=== PATIENT | male | born 1965 | race Caucasian/White ===

== ENCOUNTER 2020-12-03 20:21 | Emergency (ER) | payer OTHER, SELFPAY ==
--- NOTE | 2020-12-03 20:25 | ED_ITS ---
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 Today while at home started having some chest pain which also he claims that he does get chest pain ever most every day for last 1 month after having chest pain he was started shouting calling his girlfriend and then he had a seizure which lasted about 5 minutes by the time EMS reached patient was just moving her slight arm alert no postictal findings very anxious. No incontinence no eyes of Prolene patient denied any use of alcohol or substance complaint: seizure Onset (ago): minute(s) Description of Episode: loss of consciousness and tonic-clonic movement Duration of episode: 5 -: minutes(s) Witnessed: Yes - by Bystander Trauma: No Seizure History: Yes Place: Home Possible Precipitating Event: lack of sleep Associated symptoms: chest pain Related Data Allergies Allergy/AdvReac Type Severity Reaction Status Date / Time hydromorphone [From Dilaudid] Allergy Difficulty Verified 12/03/20 20:47 Swallowing Penicillins Allergy Difficulty Verified 12/03/20 20:47 Swallowing Review of Systems Review of Systems: Constitutional : No Weight loss, No Fever, No Chills ENT/Mouth : No sore throat, No Rhinorrhea Eyes: No Eye Pain, No Swelling Cardiovascular : ++ Chest Pain, no palpitations Respiratory : No Cough, No Sputum, no shortness of breath Gastrointestinal : no Nausea, No Vomiting, No Diarrhea, No abdominal Pain, no black stools Genitourinary : No Dysuria, No Urinary Frequency Musculoskeletal : No joint pain, No Myalgias, No Joint Swelling Skin : No Skin Lesions, No rash Neuro : No Weakness, No Numbness, No Dizziness, No Headache Psych : ++Anxiety/Panic, ++ Depression Heme/Lymph: No Bruising, No Lymphadenopathy Endocrine : No Polyuria, No Polydipsia All other systems reviewed and are negative PMFSH Past Medical History Medical History COPD (chronic obstructive pulmonary disease) Emphysema lung HIV disease Pulmonary embolism Seizures Surgical History H/O wrist surgery History of lung surgery Previous back surgery Social History Social History Alcohol intake: never Smoking Status: Current every day smoker Smoked in Last 30 Days: Yes Use of substances other than those prescribed or required for medical reasons: No Advance Directives: No Advance Directives Information Provided: No Physical Exam Vital Signs: Vital Signs: Last Vital Signs Temp 98.7 F 12/03/20 23:41 Pulse 75 12/03/20 23:41 Resp 20 12/03/20 23:41 BP 104/63 12/03/20 23:41 Pulse Ox 99 12/03/20 23:41 Body Mass Index 18.8 Const: General: comfortable, alert, awake and anxious Nutritional Appearance: thin Orientation/consciousness: patient oriented x3 HENMT: Head: Yes normocephalic and Yes atraumatic Ears: hearing grossly normal bilaterally General nose exam: Normal external nose present Mouth: Normal oral and palatal mucosa present, tongue normal and oropharynx normal Teeth and gingiva: dentition normal Eyes: General: appearance normal, both eyes and all related structures Conjunctivae: conjunctivae normal Sclerae: sclerae normal Pupils: Equal, r ound and reactive pupils present Neck: Neck: Yes normal visual inspection, Yes full ROM, Yes no lymphadenopathy and Yes no meningeal signs Chest: Chest palpation & inspection: normal palpation of entire chest wall and abnormal inspection of the chest Resp: Effort & Inspection: normal respiratory effort Auscultation: clear to auscultation bilaterally, no crackles, no rales and no rhonchi Cardio: Palpation: normal PMI Rate: regular rate Rhythm: regular rhythm Heart sounds: S1 normal heart sound present and S2 normal heart sound present GI: Inspection: Yes normal to inspection Palpation (GI): Soft to palpation and nontender Auscultation: normal bowel sounds Back/Spine/Pelvis: Thoracic/Lumbar Spine: thoracic and lumbar spine normal to inspection Skin: General skin exam: no rashes or lesions noted Neuro: General: patient oriented x3, gait normal, tone normal, moves all extremities, Normal light touch and pain sensation, no meningeal signs, no focal motor deficits and CN's II-XI intact bilaterally Cranial nerves: Yes Equal, r ound and reactive pupils present Extrem: General: Yes normal to inspection, Yes full ROM and Yes no calf tenderness Psych: Appearance: grossly normal Mental Status: mental status grossly normal Speech and movement: Normal speech and movement present Affect: Anxious affect present Attitude: cooperative Thought process: Normal thought process present Thought content: Normal thought content present Insight: Good insight present (Psych) Judgement: Good judgement present (Psych) Course Reevaluation(s) Reevaluation #1: Patient is sleeping at this time no seizures activities patient EKG showed deep T inversion in anterior leads seems to be old but no old EKG available initial troponin was 4.9 for the chest pain which is going on for a month which is not significant. Will repeat EKG and troponin plan to discharge patient home to be followed with neurologist Time: 23:34 MDM - Seizure MDM Narrative Medical decision making narrative: Patient has atypical pseudoseizures been sleeping in the ER in the ER he started shaking his right hand which was stopped by holding it. CT scan of the head is negative for any acute pathology. Patient is very rude with the nurses refused to draw the 2nd troponin although 2nd EKG was without any acute change. Patient denied any chest pain. Will d ischarge patient home at this time advised to follow-up with neurologist Differential Diagnosis Differential diagnosis: Likely generalized seizure Lab Data Attestation: I reviewed the patient's lab results. Result diagrams: 12/03/20 21:15 12/03/20 21:15 Labs: Lab Results 12/03/20 12/03/20 12/03/20 Range/Units 21:15 21:15 21:15 WBC 1.8 L (4.8-10.8) X10*3/uL RBC 4.45 L (4.60-5.80) X10*6/uL Hgb 11.3 L (14.0-18.0) g/dl Hct 35.8 L (42-52) % MCV 80.4 (80-98) fL MCH 25.4 L (27.0-33.0) pg MCHC 31.6 (31.0-36.0) g/dl RDW 14.8 (11.0-16.0) % Plt Count 123 L (160-400) X10*3/uL MPV 10.3 (9.4-12.4) fL Immature Gran % (Auto) Cancelled Neut % (Auto) Cancelled Lymph % (Auto) Cancelled [place] % (Auto) Cancelled Eos % (Auto) Cancelled Baso % (Auto) Cancelled Lymph # (Auto) Cancelled [place] # (Auto) Cancelled Eos # (Auto) Cancelled Baso # (Auto) Cancelled Abs Immat Gran (auto) Cancelled Absolute Neuts (auto) Cancelled Absolute Nucleated RBC 0.000 (0.0-0.012) X10*3/uL Nucleated RBC % (auto) 0.0 (0.0-0.2) /100WBC Neutrophils % (Manual) 53 (45-73) % Band Neutrophils % 0 L (3-5) % Lymphocytes % (Manual) 39 (20-40) % Monocytes % (Manual) 8 (2-11) % Abs Neuts (Manual) 1.0 L (2.2-7.9) X10*3/uL Lymphocytes # (Manual) 0.7 (0.6-4.8) X10*3/uL Monocytes # (Manual) 0.1 (0.0-1.2) X10*3/uL Platelet Estimate SLIGHTLY DECREASED (NORMAL) Plt Morphology Comment NORMAL RBC Morphology NORMAL PT 12.5 (10.8-13.0) SEC INR 1.1 (0.9-1.1) Sodium 134 L (135-145) mmol/L Potassium 4.0 (3.3-5.1) mmol/l Chloride 103 (96-108) mmol/L Carbon Dioxide 24 (22-29) mmol/L Anion Gap 11 L (12-20) BUN 17 H (9-16) mg/dL Creatinine 1.04 (0.5-1.4) mg/dL Estim Creat Clear Calc 64.8 Estimated GFR > 60 Random Glucose 73 (60-115) mg/dL Calcium 8.5 (8.4-10.2) mg/dL Total Bilirubin 0.4 (0.0-1.0) mg/dL Direct Bilirubin 0.2 (0.0-0.5) mg/dL AST 22 (5-37) U/L ALT 16 (0-40) U/L Alkaline Phosphatase 97 (39-117) U/L Troponin I High Sens (<3.5-35.0) ng/L Total Protein 7.1 (6.5-8.0) g/dL Albumin 3.4 L (3.5-5.0) g/dL Valproic Acid (50.0-100.0) mcg/mL 12/03/20 12/03/20 Range/Units 21:15 21:15 WBC (4.8-10.8) X10*3/uL RBC (4.60-5.80) X10*6/uL Hgb (14.0-18.0) g/dl Hct (42-52) % MCV (80-98) fL MCH (27.0-33.0) pg MCHC (31.0-36.0) g/dl RDW (11.0-16.0) % Plt Count (160-400) X10*3/uL MPV (9.4-12.4) fL Immature Gran % (Auto) Neut % (Auto) Lymph % (Auto) [place] % (Auto) Eos % (Auto) Baso % (Auto) Lymph # (Auto) [place] # (Auto) Eos # (Auto) Baso # (Auto) Abs Immat Gran (auto) Absolute Neuts (auto) Absolute Nucleated RBC (0.0-0.012) X10*3/uL Nucleated RBC % (auto) (0.0-0.2) /100WBC Neutrophils % (Manual) (45-73) % Band Neutrophils % (3-5) % Lymphocytes % (Manual) (20-40) % Monocytes % (Manual) (2-11) % Abs Neuts (Manual) (2.2-7.9) X10*3/uL Lymphocytes # (Manual) (0.6-4.8) X10*3/uL Monocytes # (Manual) (0.0-1.2) X10*3/uL Platelet Estimate (NORMAL) Plt Morphology Comment RBC Morphology PT (10.8-13.0) SEC INR (0.9-1.1) Sodium (135-145) mmol/L Potassium (3.3-5.1) mmol/l Chloride (96-108) mmol/L Carbon Dioxide (22-29) mmol/L Anion Gap (12-20) BUN (9-16) mg/dL Creatinine (0.5-1.4) mg/dL Estim Creat Clear Calc Estimated GFR Random Glucose (60-115) mg/dL Calcium (8.4-10.2) mg/dL Total Bilirubin (0.0-1.0) mg/dL Direct Bilirubin (0.0-0.5) mg/dL AST (5-37) U/L ALT (0-40) U/L Alkaline Phosphatase (39-117) U/L Troponin I High Sens 4.9 (<3.5-35.0) ng/L Total Protein (6.5-8.0) g/dL Albumin (3.5-5.0) g/dL Valproic Acid < 2.0 L (50.0-100.0) mcg/mL ECG Data Attestation: I personally reviewed and interpreted this ECG as follows: Interpretation: Normal sinus rhythm heart rate 72, right-sided axis T inversion in anterior leads V1 V2 V3 and lead 2 and lead [address] elevation no acute ischemia Repeat EKG at 23 33. Normal sinus rhythm ventricular rate 71 beats per minute right axis T inversion in anterior leads similar to an old EKG no ST elevation Discharge Plan Discharge Clinical Impression: Pseudoseizure, Anxiety Patient Disposition: Home, Self-Care Instructions: Recurrent Seizures in Adults (ED), Anxiety (ED) Additional Instructions: Continue medication and follow with neurologist/PCP Referrals: Juan Rivas MD [Physician] - 2 weeks
[2020-12-03 20:39] VITALS: BP 109/71; PULSE 76; RESP 18; TEMP 36.7; O2SAT 99; BMI 18.8
--- NOTE | 2020-12-03 20:48 | ECG_ITS ---
Test Reason : CHEST PAIN Blood Pressure : / mmHG Vent. Rate : 072 BPM Atrial Rate : 072 BPM P-R Int : 190 ms QRS Dur : 100 ms QT Int : 406 ms P-R-T Axes : 067 106 -40 degrees QTc Int : 444 ms Normal sinus rhythm Rightward axis Cannot rule out Inferior infarct , age undetermined ST & T wave abnormality, consider anterior ischemia Abnormal ECG No previous ECGs available Referred By: Len Bolivar Electronically Signed By:ALYSSA OG MD
--- NOTE | 2020-12-03 20:48 | XR_ITS ---
EXAMINATION: XR CHEST CLINICAL INFORMATION: Chest pain. COMPARISON: None TECHNIQUE: Frontal view of the chest was obtained. FINDINGS: Heart size is normal. There is evidence of COPD with bullous formation, especially at the apices. There has been partial pneumonectomy with chain suture line seen in the right [id number] lobe and possibly left upper lobe as well. There is no evidence of CHF. No consolidations or pleural effusions are seen. There is a large pulmonary vein seen at the left lung base medially which could be secondary to anomalous pulmonary venous return (i.e., Scimitar syndrome). Anatomy could also be distorted because of previous surgery and this could be artifactual. CT would be helpful for further evaluation, however, I suspect that this patient has probably had many chest CTs in the past given the bilateral lung resection/surgery. XR/XR chest 1V IMPRESSION: 1. No acute intrathoracic disease. 2. Underlying COPD with evidence of bilateral upper lobe lung surgery. 3. Prominent pulmonary vein at the left base medially which could represent anomalous pulmonary venous return. This would be best evaluated with contrast-enhanced CT.
[2020-12-03] MEDS: LORazepam 2 MG/ML VIAL 1 MG IVPUSH (21:05)
--- NOTE | 2020-12-03 21:17 | PC.NURSE ---
patient a&ox3, monitoring coordinator applied, nsr 70s, ekg performed, cxr performed, seizure precautions intact, pt medicated per order, will continue to monitor.
[2020-12-03] MEDS: Aspirin Enteric Coated 81 MG TABLET.DR 162 MG PO (21:26)
[2020-12-03 21:27] LABS: Hemoglobin 11.3 g/dl (14.0-18.0); PLT CLUMP 1
--- NOTE | 2020-12-03 21:27 | PC.NURSE ---
pt medicated per order
[2020-12-03 21:29] LABS: Hematocrit 35.8 % (42-52); Mean Corpuscular HGB Conc 31.6 g/dl (31.0-36.0); Mean Corpuscular Hemoglobin 25.4 pg (27.0-33.0); Mean Corpuscular Volume 80.4 fL (80-98); Mean Platelet Volume 10.3 fL (9.4-12.4); Platelet Count 123 X10*3/uL (160-400); Red Blood Count 4.45 X10*6/uL (4.60-5.80); Red Cell Distribution Width 14.8 % (11.0-16.0)
[2020-12-03 21:32] LABS: INTERNATIONAL NORM RATIO 1.1 (0.9-1.1); Prothrombin Time 12.5 SEC (10.8-13.0)
[2020-12-03 21:48] LABS: Alanine Aminotransferase 16 U/L (0-40); Albumin Level 3.4 g/dL (3.5-5.0); Alkaline Phosphatase 97 U/L (39-117); Anion Gap 11 (12-20); Aspartate Amino Transferase 22 U/L (5-37); Bilirubin Direct 0.2 mg/dL (0.0-0.5); Bilirubin Total 0.4 mg/dL (0.0-1.0); Blood Urea Nitrogen 17 mg/dL (9-16); Calcium 8.5 mg/dL (8.4-10.2); Carbon Dioxide 24 mmol/L (22-29); Chloride 103 mmol/L (96-108); Creatinine Clr Calc Pharmacy 64.8; Estimated Glomerular Filt Rate > 60; Glucose Random 73 mg/dL (60-115); Sodium 134 mmol/L (135-145); Total Protein 7.1 g/dL (6.5-8.0)
[2020-12-03 21:51] LABS: Troponin-I High Sensitivity 4.9 ng/L (<3.5-35.0)
[2020-12-03 21:55] LABS: White Blood Count 1.8 X10*3/uL (4.8-10.8)
[2020-12-03 22:00] LABS: Lymphocytes Absolute Manual 0.7 X10*3/uL (0.6-4.8); Lymphocytes Percent Manual 39 % (20-40); Monocytes Absolute Manual 0.1 X10*3/uL (0.0-1.2); Monocytes Percent Manual 8 % (2-11); Neutrophils Percent Manual 53 % (45-73)
--- NOTE | 2020-12-03 22:00 | CT_ITS ---
EXAMINATION: CT HEAD WITHOUT CONTRAST CLINICAL INFORMATION: Seizure on elaq eloquenceisu COMPARISON: None TECHNIQUE: Contiguous axial imaging was performed from the skull base to vertex without intravenous administration of contrast. This CT examination was performed using dose optimization techniques as appropriate, variously including the following: *Automated exposure control *Adjustment of mA and/or kV according to patient size (this includes techniques or standardized protocols for targeted exams where dose is matched to indication/reason for exam; i.e. extremities or head) *Use of iterative reconstruction technique DLP: 829 mGy-cm FINDINGS: There is no evidence of acute intracranial hemorrhage or territorial infarction. No abnormal mass effect or midline shift is seen. Ventricles are within normal limits. Some probable scattered areas of white matter ischemic change. The basilar cisterns are patent. The posterior fossa risk grossly within normal limits. No extra-axial collection. No evidence for fracture on the bone windows. The visualized sinuses appear clear. CT/CT head/brain wo con IMPRESSION: Negative acute noncontrast CT of the brain. Some probable scattered areas of white matter ischemic change. No midline shift. No mass effect. No hemorrhage. Given history consider MRI to fully evaluate.
[2020-12-03 22:03] LABS: Platelet Estimate SLIGHTLY DECREASED (NORMAL); Platelet Morphology Comment NORMAL; RBC Morphology NORMAL
[2020-12-03 22:04] LABS: Band Neutrophils Percent 0 % (3-5)
[2020-12-03 22:09] LABS: Valproate < 2.0 mcg/mL (50.0-100.0)
--- NOTE | 2020-12-03 23:18 | ECG_ITS ---
Test Reason : SEIZURE Blood Pressure : / mmHG Vent. Rate : 071 BPM Atrial Rate : 071 BPM P-R Int : 202 ms QRS Dur : 102 ms QT Int : 400 ms P-R-T Axes : 073 109 -24 degrees QTc Int : 434 ms Normal sinus rhythm Possible Left atrial enlargement Anterior T wave inversion c/w either anterior ischemia or RV strain Possible Inferior infarct (cited on or before 03-DEC-2020) Abnormal ECG When compared with ECG of 03-DEC-2020 21:03, No significant change was found Referred By: Len Bolivar Electronically Signed By:ALYSSA OG MD
[2020-12-03 23:41] VITALS: BP 104/63; PULSE 75; RESP 20; TEMP 37.1; O2SAT 99
--- NOTE | 2020-12-03 23:46 | PC.NURSE ---
GERMAIN MCALLISTER AND MD HARRISON AWARE OF PATIENT REFUSAL OF REPEATED TROPONIN .
--- NOTE | 2020-12-03 23:51 | PC.NURSE ---
PATIENT SWEARING AT STAFF MEMBERS REFUSING TO HAVE ADDITIONAL LABS DRAWN. MD AT BEDSIDE, PLAN OF CARE WILL BE FOR DISCHARGE HOME. PATIENT IS ALERT WITH NO DISTRESS NOTED.
== END 2020-12-03 23:56 | disposition home or self-care (01) ==
PROVIDERS: Emergency Provider Internal Medicine
DX: F44.5 Conversion disorder with seizures or convulsions (principal); F41.9 Anxiety disorder, unspecified; J44.9 Chronic obstructive pulmonary disease, unspecified; B20 Human immunodeficiency virus [HIV] disease; F17.200 Nicotine dependence, unspecified, uncomplicated; Z86.711 Personal history of pulmonary embolism; Z79.01 Long term (current) use of anticoagulants; Z79.899 Other long term (current) drug therapy
CPT/HCPCS: 36415; 70450; 71045; 80048; 80076; 80164; 84484; 85007; 85027; 85060; 85610; 93005; 96374; 99284; J2060

== ENCOUNTER 2021-02-28 22:14 | Emergency (ER) | payer OTHER, SELFPAY ==
--- NOTE | ~2021-02-28 | CT_ITS ---
EXAMINATION: CT ANGIOGRAM OF THE CHEST WITH AND WITHOUT CONTRAST (CT PULMONARY ANGIOGRAM FOR PE) CLINICAL INFORMATION: Reason for Exam Chest pain, shortness of breath, known PE COMPARISON: None TECHNIQUE: Prior to contrast administration, noncontrast localization images were obtained. Subsequently, multidetector volumetric imaging was performed from the thoracic inlet to below the diaphragms following the administration of 65 mL Omnipaque 350 intravenous contrast. No contrast reaction reported Sagittal, coronal, and MIP oblique sagittal reformatted images were obtained on the CT workstation, uploaded to PACS, and reviewed. This CT examination was performed using dose optimization techniques as appropriate, variously including the following: *Automated exposure control *Adjustment of mA and/or kV according to patient size (this includes techniques or standardized protocols for targeted exams where dose is matched to indication/reason for exam; i.e. extremities or head) *Use of iterative reconstruction technique Total exam dose-length product 206 mGy-cm FINDINGS: QUALITY OF STUDY/CONTRAST BOLUS: Satisfactory. PULMONARY ARTERIES: Extensive bilateral thromboembolic burden with complete occlusion of a medial segmental pulmonary artery to the middle lobe as seen on series 7, image 253, and partial occlusion of the right upper lobe pulmonary artery containing wall adherent thrombus extending into the segmental branches. On the left, there is occlusive thrombus within segmental pulmonary arteries supplying the apical posterior segments, and nonocclusive thrombus within lateral and posterior basal segmental pulmonary arteries. The main pulmonary artery is dilated to 33 mm compatible with pulmonary hypertension. THORACIC AORTA: No aneurysm or dissection. LUNG: Severe bullous emphysema with areas of pleural-parenchymal scarring within the anterior segment of the upper lobe and lateral left upper lobe. No suspicious pulmonary nodules or masses. PLEURA: No pleural effusion or pneumothorax. MEDIASTINUM: Increased RV LV ratio greater than 1 indicative of pulmonary hypertension. No pericardial effusion. No hilar or mediastinal lymphadenopathy. No evidence of septal bowing or right heart strain. CHEST WALL/AXILLA: No axillary or internal mammary lymphadenopathy. OSSEOUS STRUCTURES: No acute or suspicious osseous abnormality. UPPER ABDOMEN: Unremarkable. No reflux of contrast into the hepatic veins to suggest elevated right heart pressures. CT/CT angio chest PE protocol IMPRESSION: * Extensive bilateral pulmonary emboli most of which appearing chronic, wall adherent and eccentric in appearance. Thrombus within a pulmonary artery supplying the medial segment of the middle lobe is completely occlusive. As such, acute on chronic pulmonary embolism is also considered. * Significant pulmonary hypertension without evidence of right heart decompensation at this time. VTE: positive This critical result was discussed with Flaquita Rosen MD at 03/01/2021 1252AM and it was ascertained that the content and urgency of the report was understood at the time of direct communication.
[2021-02-28 22:17] VITALS: BP 118/86; PULSE 96; RESP 18; TEMP 37; O2SAT 100; BMI 25.9
--- NOTE | 2021-02-28 22:29 | ECG_ITS ---
Test Reason : CHEST PAIN Blood Pressure : / mmHG Vent. Rate : 092 BPM Atrial Rate : 092 BPM P-R Int : 172 ms QRS Dur : 112 ms QT Int : 374 ms P-R-T Axes : 082 113 048 degrees QTc Int : 462 ms Normal sinus rhythm Biatrial enlargement Right axis deviation Pulmonary disease pattern Right ventricular hypertrophy with repolarization abnormality Abnormal ECG When compared with ECG of 03-DEC-2020 23:33, T wave inversion no longer evident in Inferior leads Referred By: Generic ED Physician Electronically Signed By:BAYRON GLYNN
[2021-02-28 22:47] LABS: Basophils Percent Auto 0.8 % (0-2); Eosinophils Percent Auto 1.1 % (0-4); Hematocrit 38.7 % (42-52); Hemoglobin 12.1 g/dl (14.0-18.0); Lymphocytes Absolute Auto 0.5 X10*3/uL (1.2-4.9); Lymphocytes Percent Auto 20.6 % (20-40); MANUAL DIFF FLAG SCAN; Mean Corpuscular HGB Conc 31.3 g/dl (31.0-36.0); Mean Corpuscular Hemoglobin 25.2 pg (27.0-33.0); Mean Corpuscular Volume 80.6 fL (80-98); Mean Platelet Volume 9.9 fL (9.4-12.4); Monocytes Absolute Auto 0.3 X10*3/uL (0.1-1.2); Monocytes Percent Auto 9.9 % (2-11); Neutrophils Absolute Auto 1.8 X10*3/uL (2.0-8.3); Neutrophils Percent Auto 67.6 % (45-73); Platelet Count 134 X10*3/uL (160-400); Red Cell Distribution Width 16.4 % (11.0-16.0); SCAN SMEAR FLAG 1; White Blood Count 2.6 X10*3/uL (4.8-10.8)
--- NOTE | 2021-02-28 23:00 | PC.NURSE ---
Pt requesting pain management. pt orientated to process of ED and needing provider to put in orders. Pt verbalized d/c teaching.
[2021-02-28 23:07] LABS: SLIDE REVIEW VERIFIED
[2021-02-28 23:10] LABS: Alanine Aminotransferase 20 U/L (0-40); Albumin Level 3.7 g/dL (3.5-5.0); Alkaline Phosphatase 96 U/L (39-117); Anion Gap 14 (12-20); Aspartate Amino Transferase 26 U/L (5-37); Bilirubin Direct 0.2 mg/dL (0.0-0.5); Bilirubin Total 0.4 mg/dL (0.0-1.0); Blood Urea Nitrogen 19 mg/dL (9-16); Calcium 8.7 mg/dL (8.4-10.2); Carbon Dioxide 23 mmol/L (22-29); Chloride 103 mmol/L (96-108); Creatinine Clr Calc Pharmacy 66.4; Estimated Glomerular Filt Rate > 60; Glucose Random 131 mg/dL (60-115); Potassium 3.9 mmol/L (3.3-5.1); Sodium 136 mmol/L (135-145); Total Protein 7.8 g/dL (6.5-8.0)
[2021-02-28 23:16] LABS: Troponin-I High Sensitivity 6.3 ng/L (<3.5-35.0)
--- NOTE | 2021-02-28 23:43 | PC.NURSE ---
Pt refusing CT at this time. Pt educated that it is important to be fully evaluated prior to leaving hosptial. per patient I havent jerardoking seen a doctor only nurses, this place is a fucking shit hole. I should have went to a real hospital. I want stuff for pain. MD aware. Continuing to monitor at this time.
[2021-02-28 23:46] VITALS: BP 104/64; PULSE 62; RESP 18; O2SAT 96
--- NOTE | 2021-02-28 23:52 | PC.NURSE ---
pt continues to refuse ct until I see a real doctor >.
--- NOTE | 2021-02-28 23:56 | PC.NURSE ---
provider at bedside.
--- NOTE | 2021-03-01 00:04 | ED.GENADULT ---
HPI - General Adult General Chief complaint: General Medical Stated complaint: CP S/P FALL Time Seen by Provider: 02/28/21 23:04 Source: patient Mode of arrival: EMS History of Present Illness HPI narrative: This is a 55-year-old male with significant past medical history of PE currently on Eliquis (patient states that on re-evaluation of PE it has increased in size), HIV and presents via EMS today after he reports that he fell down 5 stairs while he was caring a garbage bag in each hand. He states that he did not hit anything with the exception of bilateral knees upon landing. He denies any subsequent pain to either knee and states that this evening he went to have dinner and watch wrestling and then developed right-sided chest pain that radiates into his back and worsens with deep inspiration as well as movement. He denies any associated dizziness or nausea. Related Data Home Medications Medication Instructions Recorded Confirmed apixaban [Eliquis] 1 tab PO BID 03/01/21 03/01/21 divalproex 4 cap PO BID 03/01/21 03/01/21 fluticasone propion-salmeterol 1 puff PO BID 03/01/21 03/01/21 [Wixela Inhub] ipratropium-albuterol 1 vial INHALATION QID 03/01/21 03/01/21 levetiracetam 1 tab PO BID 03/01/21 03/01/21 multivitamin 1 tab PO DAILY 03/01/21 03/01/21 pantoprazole 1 tab PO DAILY 03/01/21 03/01/21 sulfamethoxazole-trimethoprim 1 tab PO DAILY 03/01/21 03/01/21 Allergies Allergy/AdvReac Type Severity Reaction Status Date / Time hydromorphone [From Dilaudid] Allergy Difficulty Verified 12/03/20 20:47 Swallowing Penicillins Allergy Difficulty Verified 12/03/20 20:47 Swallowing Review of Systems Review of Systems: Pertinent positives and negatives as stated in HPI 10 point review of systems is otherwise negative. [facility] Past Medical History Source: nursing notes reviewed Medical History COPD (chronic obstructive pulmonary disease) Emphysema lung HIV disease Pulmonary embolism Seizures Surgical History H/O wrist surgery History of lung surgery Previous back surgery Social History Social History Alcohol intake: current Alcohol intake frequency: 3 or more drinks per day Smoking Status: Current every day smoker Smoked in Last 30 Days: Yes Use of substances other than those prescribed or required for medical reasons: Refusing to respond Advance Directives: No Advance Directives Information Provided: Yes Physical Exam Vital Signs: Vital Signs: Last Vital Signs Temp 98.6 F 02/28/21 22:17 Pulse 62 02/28/21 23:46 Resp 18 02/28/21 23:46 BP 104/64 02/28/21 23:46 Pulse Ox 96 02/28/21 23:46 Body Mass Index 25.9 VITAL SIGNS: Reviewed. GENERAL: Well developed, well nourished, in no acute distress. HEAD: Normocephalic/atraumatic, EYES: PERRLA, EOMI intact without pain EARS: Ext canals without abnormality NOSE: Nares patent bilateral OROPHARYNX: no oral lesions noted, posterior pharynx clear NECK: Supple, no adenopathy LUNGS: Normal breath sounds. No adventitious sounds or accessory muscle use. SpO2<96> CHEST WALL: minimal ttp over RIGHT anterior chest without crepitus CARDIOVASCULAR: Regular rate and rhythm without noted murmurs ABDOMEN: Soft, non-tender, non-distended with bowel sounds. MUSCULOSKELETAL: No tenderness, deformities, or effusions noted on gross inspection. EXTREMITIES: No cyanosis, clubbing or edema. SKIN: Inspection of the skin reveals no rashes NEUROLOGIC: Alert and oriented x 4. Strength and sensation to light touch were grossly intact x 4. Course Course Course Narrative: 55-year-old male with history and clinical presentation concerning for possible change in clot load within the pulmonary system given patient's symptoms. Although there are no acute EKG changes and high sensitivity troponin is 6.3 which is not a significant elevation or change when compared to prior of 4.9 on 12/03/2020. Reevaluation(s) Reevaluation #1: CTA CHEST IMPRESSION: * Extensive bilateral pulmonary emboli most of which appearing chronic, wall adherent and eccentric in appearance. Thrombus within a pulmonary artery supplying the medial segment of the middle lobe is completely occlusive. As such, acute on chronic pulmonary embolism is also considered. * Significant pulmonary hypertension without evidence of right heart decompensation at this time. VTE: positive Time: 00:52 Reevaluation #2: I discussed this case with vascular, Dr. Lowry, who recommends transfer to [facility] in light of prior care provided there as well as potentially new findings of PE with 100% occlusion without evidence of right heart strain. Time: 01:50 Reevaluation #3: Call out to [facility] Time: 01:55 Additional Reevaluation(s): 0235: I discussed the case with ICU fellow, Dr. Colby, who will discuss that further with her attending and return my call. 0310: I again spoke with Dr. Colby who informs me that they are not accepting transfer at this time as patient does not meet criteria for acute intervention or criteria for tPA. At this time I you am being informed that [facility] is on diversion for otherwise stable patients. 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 0525: I discussed the case with Dr. Hector who is agreeable for admission and recommends placing on heparin with a half dose of the initial bolus. Medical Decision Making Lab Data Result diagrams: 02/28/21 22:42 02/28/21 22:42 Labs: Lab Results 02/28/21 02/28/21 02/28/21 Range/Units 22:42 22:42 22:42 WBC 2.6 L (4.8-10.8) X10*3/uL RBC 4.80 (4.60-5.80) X10*6/uL Hgb 12.1 L (14.0-18.0) g/dl Hct 38.7 L (42-52) % MCV 80.6 (80-98) fL MCH 25.2 L (27.0-33.0) pg MCHC 31.3 (31.0-36.0) g/dl RDW 16.4 H (11.0-16.0) % Plt Count 134 L (160-400) X10*3/uL MPV 9.9 (9.4-12.4) fL Immature Gran % (Auto) 0.0 (0.0-0.4) % Neut % (Auto) 67.6 (45-73) % Lymph % (Auto) 20.6 (20-40) % [place] % (Auto) 9.9 (2-11) % Eos % (Auto) 1.1 (0-4) % Baso % (Auto) 0.8 (0-2) % Lymph # (Auto) 0.5 L (1.2-4.9) X10*3/uL [place] # (Auto) 0.3 (0.1-1.2) X10*3/uL Eos # (Auto) 0.0 (0.0-0.4) X10*3/uL Baso # (Auto) 0.0 (0.0-0.2) X10*3/uL Abs Immat Gran (auto) 0.00 (0.00-0.03) X10*3/uL Absolute Neuts (auto) 1.8 L (2.0-8.3) X10*3/uL Absolute Nucleated RBC 0.000 (0.0-0.012) X10*3/uL Nucleated RBC % (auto) 0.0 (0.0-0.2) /100WBC Smear Tech's Comments VERIFIED Hold Blue Top SEE NOTE Sodium 136 (135-145) mmol/L Potassium 3.9 (3.3-5.1) mmol/L Chloride 103 (96-108) mmol/L Carbon Dioxide 23 (22-29) mmol/L Anion Gap 14 (12-20) BUN 19 H (9-16) mg/dL Creatinine 1.12 (0.5-1.4) mg/dL Estim Creat Clear Calc 66.4 Estimated GFR > 60 Random Glucose 131 H D (60-115) mg/dL Calcium 8.7 (8.4-10.2) mg/dL Total Bilirubin 0.4 (0.0-1.0) mg/dL Direct Bilirubin 0.2 (0.0-0.5) mg/dL AST 26 (5-37) U/L ALT 20 (0-40) U/L Alkaline Phosphatase 96 (39-117) U/L Troponin I High Sens (<3.5-35.0) ng/L Total Protein 7.8 (6.5-8.0) g/dL Albumin 3.7 (3.5-5.0) g/dL COVID-19 ([facility]) (Negative) COVID-19 Clin Com 02/28/21 03/01/21 Range/Units 22:42 02:41 WBC (4.8-10.8) X10*3/uL RBC (4.60-5.80) X10*6/uL Hgb (14.0-18.0) g/dl Hct (42-52) % MCV (80-98) fL MCH (27.0-33.0) pg MCHC (31.0-36.0) g/dl RDW (11.0-16.0) % Plt Count (160-400) X10*3/uL MPV (9.4-12.4) fL Immature Gran % (Auto) (0.0-0.4) % Neut % (Auto) (45-73) % Lymph % (Auto) (20-40) % [place] % (Auto) (2-11) % Eos % (Auto) (0-4) % Baso % (Auto) (0-2) % Lymph # (Auto) (1.2-4.9) X10*3/uL [place] # (Auto) (0.1-1.2) X10*3/uL Eos # (Auto) (0.0-0.4) X10*3/uL Baso # (Auto) (0.0-0.2) X10*3/uL Abs Immat Gran (auto) (0.00-0.03) X10*3/uL Absolute Neuts (auto) (2.0-8.3) X10*3/uL Absolute Nucleated RBC (0.0-0.012) X10*3/uL Nucleated RBC % (auto) (0.0-0.2) /100WBC Smear Tech's Comments Hold Blue Top Sodium (135-145) mmol/L Potassium (3.3-5.1) mmol/L Chloride (96-108) mmol/L Carbon Dioxide (22-29) mmol/L Anion Gap (12-20) BUN (9-16) mg/dL Creatinine (0.5-1.4) mg/dL Estim Creat Clear Calc Estimated GFR Random Glucose (60-115) mg/dL Calcium (8.4-10.2) mg/dL Total Bilirubin (0.0-1.0) mg/dL Direct Bilirubin (0.0-0.5) mg/dL AST (5-37) U/L ALT (0-40) U/L Alkaline Phosphatase (39-117) U/L Troponin I High Sens 6.3 (<3.5-35.0) ng/L Total Protein (6.5-8.0) g/dL Albumin (3.5-5.0) g/dL COVID-19 ([facility]) Negative (Negative) COVID-19 Clin Com See Note Discharge Plan Discharge Clinical Impression: Acute pulmonary embolism Qualifiers: Pulmonary embolism type: other Acute cor pulmonale presence: without acute cor pulmonale Qualified Code(s): I26.99 - Other pulmonary embolism without acute cor pulmonale Patient Disposition: Admitted As Inpatient
[2021-03-01] MEDS: Morphine Sulfate 2 MG/ML CARTRIDGE 1 MG IVPUSH ×2 (00:14→04:30)
[2021-03-01] MEDS: iohexoL 350 MG/ML 100 ML INFUS..BTL 65 ML IV (00:37)
[2021-03-01 03:06] LABS: COVID-19 Test Negative (Negative); IDNOW Serial# 9DD0AD1C
--- NOTE | 2021-03-01 03:14 | PC.NURSE ---
[facility] refused transfer. plan at this time is to reach out to other facilities. continuing to monitor.
--- NOTE | 2021-03-01 04:31 | PC.NURSE ---
pt medicated for pain to chest rating 10/10.
[2021-03-01 06:01] LABS: Hematocrit 35.3 % (42-52); Hemoglobin 11.3 g/dl (14.0-18.0); Mean Corpuscular Hemoglobin 25.5 pg (27.0-33.0); Mean Corpuscular Volume 79.5 fL (80-98); Mean Platelet Volume 10.2 fL (9.4-12.4); Platelet Count 121 X10*3/uL (160-400); Red Blood Count 4.44 X10*6/uL (4.60-5.80); Red Cell Distribution Width 16.6 % (11.0-16.0); White Blood Count 2.6 X10*3/uL (4.8-10.8)
[2021-03-01 06:02] LABS: Prothrombin Time 11.8 SEC (10.8-13.0)
[2021-03-01 07:03] VITALS: BP 105/74; PULSE 83; RESP 17; O2SAT 95
--- NOTE | 2021-03-01 07:06 | PC.NURSE ---
REPORT TAKEN FROM JAVIER KAPOOR MD AT BEDSIDE DURING REPORT. INFORMED THIS RN TO NOT START HEPARIN, MEDICAL RECORD SPECIALIST ALSO REVIEWED SCAN AND POSSIBLY NO PE. PATIENT TO BE SENT FOR FURTHER IMAGING WELL ADD D DIMER TO LAB WORK. PATIENT INFORMED OF THIS BY RN, PATIENT APPEARED IRRITATED ABOUT PLAN. PATIENT SLEEPING UPON ASSESSMENT, WOKE EASILY TO VOICE. VITALS UPDATED, STABLE.
[2021-03-01 08:32] LABS: D Dimer 1884 NG/ML
== END 2021-03-01 08:42 | disposition home or self-care (01) ==
PROVIDERS: Student in an Organized Health Care Education/Training Program; Emergency Provider Emergency Medicine Emergency Medical Services; PCP Internal Medicine
DX: I26.99 Other pulmonary embolism without acute cor pulmonale (principal); R07.9 Chest pain, unspecified; Z20.822 Contact with and (suspected) exposure to COVID-19; F17.200 Nicotine dependence, unspecified, uncomplicated; Z21 Asymptomatic human immunodeficiency virus [HIV] infection status; Z86.711 Personal history of pulmonary embolism; Z79.01 Long term (current) use of anticoagulants
CPT/HCPCS: 36415; 71275; 80053; 80076; 82248; 84484; 85025; 85027; 85379; 85610; 85730; 87635; 93005; 96365; 96375; 96376; 99284; 99285; J2270; Q9967

== ENCOUNTER 2021-05-27 16:28 | Emergency (ER) | payer OTHER, SELFPAY ==
--- NOTE | ~2021-05-27 | XR_ITS ---
EXAMINATION: XR WRIST, RIGHT CLINICAL INFORMATION: Right wrist injury COMPARISON: None TECHNIQUE: Four views of the right wrist. FINDINGS: There is plate and screw fixation hardware at the distal radius. Hardware is intact. No acute fracture or dislocation. The carpal rows are well aligned. Joint spaces are maintained. The soft tissues are unremarkable. XR/XR wrist RT min 3V IMPRESSION: No acute abnormality of the right wrist. Intact distal radial hardware.
[2021-05-27 17:09] VITALS: BP 140/75; PULSE 75; RESP 18; TEMP 36.8; O2SAT 98; BMI 16.7
--- NOTE | 2021-05-27 17:44 | ED.EXTPRO ---
HPI - Extremity Problem General Chief complaint: Extremity Injury, Upper Stated complaint: hand inj - fall Time Seen by Provider: 05/27/21 17:22 Source: patient and family Mode of arrival: ambulatory Limitations: no limitations History of Present Illness HPI Narrative: 55-year-old male presenting to the ED with complaints of right wrist pain after he tripped and fell last night at home reports it was a mechanical fall. Denies head injury or loss of consciousness. Denies any symptoms prior to the fall. Reports he only had wrist pain after the fall and no other symptoms after the fall. Reports he had surgery and has screws into his right wrist and wants to make sure everything is still intact. Denies being on any blood thinners. Denies any other injuries complaints or concerns at this time. MD Complaint: extremity pain Onset (ago): day(s) ( Since last night) Pain Consistency: constant Location: right and upper extremity Quality: aching and constant Radiation: none Relieving factors: rest Exacerbating factors: range of motion and palpation Associated symptoms: denies other symptoms Related Data Home Medications Medication Instructions Recorded Confirmed apixaban [Eliquis] 1 tab PO BID 03/01/21 03/01/21 divalproex 4 cap PO BID 03/01/21 03/01/21 fluticasone propion-salmeterol 1 puff PO BID 03/01/21 03/01/21 [Wixela Inhub] ipratropium-albuterol 1 vial INHALATION QID 03/01/21 03/01/21 levetiracetam 1 tab PO BID 03/01/21 03/01/21 multivitamin 1 tab PO DAILY 03/01/21 03/01/21 pantoprazole 1 tab PO DAILY 03/01/21 03/01/21 sulfamethoxazole-trimethoprim 1 tab PO DAILY 03/01/21 03/01/21 Allergies Allergy/AdvReac Type Severity Reaction Status Date / Time adhesive tape Allergy Rash Verified 05/27/21 17:09 hydromorphone [From Dilaudid] Allergy Difficulty Verified 05/27/21 17:09 Swallowing Penicillins Allergy Difficulty Verified 05/27/21 17:09 Swallowing Review of Systems Review of Systems: Constitutional : No changes in activity, No lethargy, No recent prior head injury, No agitation, No increased fussiness ENT/Mouth : No Ear Pain, No Nasal discharge/drainage Eyes: No Eye Pain, No Swelling, No Redness, No Foreign Body, No Vision Changes Cardiovascular : No Chest Pain, No SOB Respiratory : No Cough Gastrointestinal : No Nausea, No Vomiting, No abdominal Pain Genitourinary : No Dysuria, No Urinary Frequency, No Urinary Incontinence, No Urgency, No Flank Pain Musculoskeletal : + joint pain, No neck stiffness, No back pain/injury Skin : No lacerations Neuro : No unsteady gait, No Paresthesias, No Loss of Consciousness, No altered mental status, No Headache Yes all other systems are reviewed and are negative [facility] Past Medical History Attestation statement: The following information was validated with the patient. Medical History Anxiety COPD (chronic obstructive pulmonary disease) Emphysema lung HIV disease Pulmonary embolism Seizures Surgical History H/O wrist surgery History of lung surgery Previous back surgery Social History Social History Alcohol intake: current Alcohol intake frequency: 3 or more drinks per day Advance Directives: Yes Advance Directives Information Provided: No Advance Directives on File: No Physical Exam Vital Signs: Vital Signs: Last Vital Signs Temp 98.2 F 05/27/21 17:09 Pulse 75 05/27/21 17:09 Resp 18 05/27/21 17:09 BP 140/75 H 05/27/21 17:09 Pulse Ox 98 05/27/21 17:09 Body Mass Index 16.7 vital signs have been reviewed as normal and appeared to be correct. Blood pressure normal. Heart rate normal. Respiration rate normal. Temperature normal. Oxygen saturation normal. Appearance: Alert. Oriented X3. No acute distress. Head: Normal external exam. Normocephalic. Atraumatic. Eyes: PERRLA. EOMI. Conjunctiva and sclera normal. Eyelids normal. ENT: Pharynx normal. Uvula midline. Moist mucous membranes. Neck: Normal inspection. Neck supple. FROM. CVS: Normal heart rate and rhythm. Respiratory: No respiratory distress. Painless inspiration. Back:Full range of motion noted. Skin: Skin warm and dry. Normal skin color. Normal skin turgor. No rashes/lesions/lacerations noted. Extremities: patient with tenderness to palpation to right distal aspect of the wrist at the radial aspect no obvious deformities patient has full range of motion of the elbow/wrist and hand/finger joints. No obvious laxity is noted. No signs of infection. Otherwise all other Extremities exhibit normal range of motion and nontender. Neuro: Oriented X 3. No motor deficit. No sensory deficit. Reflexes normal. Normal steady gait. No focal neuro deficits noted. Vascular: + radial pulses/+ 2 distal pedal pulses/+2 dorsalis pedis b/l. Normal cap refill. No cyanosis noted to upper extremity nails and lower extremity toes nails. Course Course Course Narrative: 55-year-old male presenting to the ED after mechanical fall with injury to right wrist. No LOC not on any blood thinners and no head injury. Reports this was a mechanical fall did not have any symptoms prior to the fall and only a complaining of right wrist pain after the fall no other symptoms. On exam patient has full range of motion no obvious deformities or signs of infection. X-ray negative for any acute processes and his hardware is intact. Will DC home with a wrist splint and symptomatic treatment instructions to return if any new or worsening symptoms to follow up with Orthopedics/ PCP if needed. Patient and family at bedside understand agree with this plan. MDM - Extremity (Nontraumatic) Medical Records Attestation: I reviewed the patient's medical records. Imaging Data X-ray of right wrist: Attestation: I personally reviewed and interpreted this imaging study as follows: Radiologist's impression: FINDINGS: There is plate and screw fixation hardware at the distal radius. Hardware is intact. No acute fracture or dislocation. The carpal rows are well aligned. Joint spaces are maintained. The soft tissues are unremarkable. XR/XR wrist RT min 3V IMPRESSION: No acute abnormality of the right wrist. Intact distal radial hardware. Discharge Plan Discharge Clinical Impression: Sprain and strain of wrist, Fall Patient Disposition: Home, Self-Care Instructions: Fall Prevention (ED), Wrist Sprain (ED) Prescriptions: No Action multivitamin Tablet 1 tab PO DAILY RF: 0 fluticasone propion-salmeterol [Wixela Inhub] 250-50 mcg/dose blister with device 1 puff PO BID RF: 0 ipratropium-albuterol 0.5 mg-3 mg(2.5 mg base)/3 mL solution for nebulization 1 vial inhalation QID RF: 0 levetiracetam 500 mg tablet 1 tab PO BID RF: 0 sulfamethoxazole-trimethoprim 800-160 mg tablet 1 tab PO DAILY RF: 0 pantoprazole 40 mg tablet,delayed release (DR/EC) 1 tab PO DAILY RF: 0 divalproex 125 mg capsule, delayed rel sprinkle 4 cap PO BID RF: 0 Eliquis 5 mg tablet 1 tab PO BID RF: 0 Referrals: [facility] [Primary Care Provider] - 2 days Print Language: Romansh
== END 2021-05-27 18:22 | disposition home or self-care (01) ==
PROVIDERS: Emergency Provider Emergency Medicine
DX: S63.501A Unspecified sprain of right wrist, initial encounter (principal); S66.911A Strain of unspecified muscle, fascia and tendon at wrist and hand level, right hand, initial encounter; J43.9 Emphysema, unspecified; Z21 Asymptomatic human immunodeficiency virus [HIV] infection status; Z86.711 Personal history of pulmonary embolism; Z79.01 Long term (current) use of anticoagulants; Z79.899 Other long term (current) drug therapy; W01.0XXA Fall on same level from slipping, tripping and stumbling without subsequent striking against object, initial encounter; Y93.9 Activity, unspecified; Y92.009 Unspecified place in unspecified non-institutional (private) residence as the place of occurrence of the external cause; Y99.9 Unspecified external cause status
CPT/HCPCS: 73110; 99283; 99284

== ENCOUNTER 2022-02-09 22:20 | Emergency (ER) | payer OTHER, SELFPAY ==
--- NOTE | 2022-02-09 | ECG_ITS ---
Test Reason : FALL Blood Pressure : / mmHG Vent. Rate : 087 BPM Atrial Rate : 087 BPM P-R Int : 174 ms QRS Dur : 108 ms QT Int : 368 ms P-R-T Axes : 086 107 078 degrees QTc Int : 442 ms Normal sinus rhythm Pulmonary disease pattern Possible Right ventricular hypertrophy Septal infarct , age undetermined Abnormal ECG When compared with ECG of 28-FEB-2021 22:32, Septal infarct is now Present Borderline criteria for Inferior infarct are no longer Present ST no longer depressed in Anterior leads T wave inversion no longer evident in Anterior leads Referred By: Flaquita Rosen Electronically Signed By:Flex Olivo
--- NOTE | ~2022-02-09 | CT_ITS ---
EXAMINATION: CT CHEST WITHOUT CONTRAST CLINICAL INFORMATION: Fall. Pain. COMPARISON: CT chest dated 03/01/2021. TECHNIQUE: Multidetector volumetric CT imaging of the chest was done. Axial MIP volume rendering provided. Sagittal and coronal reformatted images were obtained. This CT examination was performed using dose optimization techniques as appropriate, variously including the following: *Automated exposure control. *Adjustment of mA and/or kV according to patient size (this includes techniques or standardized protocols for targeted exams where dose is matched to indication/reason for exam; i.e. extremities or head). *Use of iterative reconstruction technique. 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 LUNGS/PLEURA: At the left apex, there is irregular pleural thickening around the left upper lobe involving both the parietal pleura of both the mediastinum and chest wall. There is extensive cavitation and peripheral consolidation underlying lung parenchyma at the apical posterior segment of the left upper lobe, corresponding to a region of previously seen extensive bullous emphysema. Of note, there is a thin-walled centrally cavitary structure within the greater pocket of cavitation of the left lung apex which may represent inflammation of one of the large bullae identified on the prior study with surrounding air in the pleural as there is no appreciable surrounding parenchyma in this region. This reconstitutes a small loculated apical pneumothorax. As seen on image 39/70 of series 27, this complex bulla appears disrupted along its cephalad margin. Smaller foci of cavitation with dense peripheral consolidation are evident within the suprahilar region of the left upper lobe toward the apex. There is a smaller, isolated cavitary focus within the superior lingular segment of the left upper lobe as seen on image 45/70 of series 27, new as compared to prior. Extensive bullous emphysema is again noted in the right upper lobe with marked architectural distortion of the surrounding lung parenchyma. There is additional centrilobular emphysema in the lower lobes and right middle lobe. In the left lower lobe, there are patchy foci of bronchial wall thickening, bronchiectasis, intraluminal opacification, and airspace opacities which are concerning for aspiration or pneumonitis. No pleural effusions. MEDIASTINUM: Heart is normal in size. There is a 1.2 cm (short axis) enlarged left lower paratracheal lymph node at the level of the AP window as seen on image 27/76 of series 12. Assessment for hilar adenopathy is limited by the absence of intravenous contrast. 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 A wall thickening in the distal esophagus, potentially due to esophagitis. The pulmonary arteries are dilated, consistent with pulmonary arterial hypertension. Thyroid gland is unremarkable. AXILLA: No lymphadenopathy. UPPER ABDOMEN: A 1 cm hypodense lesion within the spleen is unchanged from prior. No acute findings in the upper abdomen. OSSEOUS STRUCTURES: No acute fracture or malalignment. No aggressive osseous lesions. CT/CT chest wo con IMPRESSION: 1. Interval development of extensive cavitary pulmonary consolidation and nodular pleural thickening in the left lung apex at the apicoposterior segment, corresponding to a region of marked bullous disease. There is likely a small loculated apical pneumothorax in this region, communicating through a defect in a bulla. This appearance is most likely due to subacute changes of pneumonia with an infected bulla. Continued follow up is advised as a superimposed lesion is difficult to exclude, particularly in the absence of intravenous contrast. No suspicious lesions are identified in this region on the prior study from 03/01/2021. 2. Mild mediastinal adenopathy, likely reactive. 3. Patchy bronchial and alveolar opacities in the left lower lobe which may correspond to aspiration or bronchopneumonia. 4. Mild esophageal wall thickening raising the possibility of esophagitis. Fleischner guidelines were followed.
--- NOTE | ~2022-02-09 | CT_ITS ---
EXAMINATION: CT HEAD WITHOUT CONTRAST CT CERVICAL SPINE WITHOUT CONTRAST CLINICAL INFORMATION: Fell. Pain. COMPARISON: CT head dated from 12/03/2020. TECHNIQUE: Contiguous axial imaging was performed from the skull base to vertex without intravenous administration of contrast. Contiguous axial imaging was performed from the upper chest through the skull base without intravenous administration of contrast. Coronal and sagittal reformats were obtained at the acquisition workstation. This CT examination was performed using dose optimization techniques as appropriate, variously including the following: *Automated exposure control *Adjustment of mA and/or kV according to patient size (this includes techniques or standardized protocols for targeted exams where dose is matched to indication/reason for exam; i.e. extremities or head) *Use of iterative reconstruction technique DLP: 772 and 289 mGy-cm FINDINGS: Head: There is no evidence of acute intracranial hemorrhage or edematous territorial infarction. A few foci of hypoattenuation in the periventricular and deep white matter are consistent with mild microangiopathy. Tim-white matter differentiation is preserved. Proportional prominence of the ventricles and sulcal spaces. No evidence for obstructive hydrocephalus. No abnormal mass effect or midline shift. No extra-axial fluid collections. No acute soft tissue or osseous abnormalities. The mastoid air cells and paranasal sinuses are clear. Cervical Spine: The atlantooccipital and atlantoaxial articulations remain well aligned. Straightening of the normal cervical lordosis. Otherwise, there is anatomic alignment of the vertebral bodies and posterior elements. No evidence of acute fracture or subluxation. Mild multilevel cervical spondylosis. There is no prevertebral soft tissue swelling. The thyroid gland and remaining cervical soft tissues are normal in appearance. The visualized lung apices are markedly abnormal and will be described on a separate report from a same day chest CT. There is extensive emphysema and a partially imaged cavitated lesion in the left apex with nodular and masslike pleural thickening of the left apex. CT/CT cervical spine wo con IMPRESSION: 1. No acute intracranial pathology. 2. No acute cervical spine fractures or malalignment. 3. Please refer to same-day chest CT report dictated separately, as the lung apices are markedly abnormal.
[2022-02-09 22:34] VITALS: BP 137/95; PULSE 92; RESP 16; TEMP 36.7; O2SAT 96; BMI 15.3
--- NOTE | 2022-02-09 22:42 | ED_ITS ---
HPI - Fall General Chief Complaint: Fall Stated Complaint: fall Time Seen by Provider: 02/09/22 22:36 Source: patient and EMS Mode of arrival: EMS History of Present Illness HPI Narrative: 56-year-old male brought in by EMS, currently on hospice and has a MOLST, patient reversed the MOLST and requested transport to the emergency room to figure out why he is having neck pain. As per the patient he got up to go to the bathroom and fell and then yelled for help with unclear LOC as patient states he woke up and EMS was there. EMS reports that patient was unresponsive for an hour and then regained consciousness. It is unclear as to who provided this information but patient later stated that the hospice nurse called the EMS. At the time of interview patient is awake, alert and oriented to self, date of , year and president. When asked explicitly regarding the DNR DNI orders patient states ?you let me ?. When asked patient about what I can do for him today he states that his neck hurts. Related Data Home Medications Medication Instructions Recorded Confirmed apixaban 5 mg tablet (Eliquis) 1 tab PO BID 03/01/21 03/01/21 divalproex 125 mg capsule,delayed 4 cap PO BID 03/01/21 03/01/21 release sprinkle fluticasone 250 mcg-salmeterol 50 1 puff PO BID 03/01/21 03/01/21 mcg/dose blistr powdr for inhalation (Wixela Inhub) ipratropium 0.5 mg-albuterol 3 mg 1 vial INHALATION QID 03/01/21 03/01/21 (2.5 mg base)/3 mL nebulization soln levetiracetam 500 mg tablet 1 tab PO BID 03/01/21 03/01/21 multivitamin 1 tab PO DAILY 03/01/21 03/01/21 pantoprazole 40 mg tablet,delayed 1 tab PO DAILY 03/01/21 03/01/21 release sulfamethoxazole 800 1 tab PO DAILY 03/01/21 03/01/21 mg-trimethoprim 160 mg tablet Allergies Allergy/AdvReac Type Severity Reaction Status Date / Time adhesive tape Allergy Rash Verified 05/27/21 17:09 hydromorphone [From Dilaudid] Allergy Difficulty Verified 05/27/21 17:09 Swallowing Penicillins Allergy Difficulty Verified 05/27/21 17:09 Swallowing Review of Systems Review of Systems: Pertinent positives and negatives as stated HPI 10 point review of systems is otherwise negative. [facility] Past Medical History Source: nursing notes reviewed Medical History Anxiety COPD (chronic obstructive pulmonary disease) Emphysema lung HIV disease Pulmonary embolism Seizures Surgical History H/O wrist surgery History of lung surgery Previous back surgery Social History Social History Alcohol intake: current Alcohol intake frequency: 3 or more drinks per day Advance Directives: No Physical Exam Vital Signs: Vital Signs: Last Vital Signs Temp 98.1 F 02/09/22 22:34 Pulse 89 02/09/22 22:43 Resp 16 02/09/22 22:43 BP 137/95 H 02/09/22 22:34 Pulse Ox 97 02/09/22 22:43 BMI result Body Mass Index 15.3 VITAL SIGNS: Reviewed. GENERAL: Chronically ill, cachectic, in no acute distress. HEAD: Normocephalic/atraumatic EYES: PERRLA, EOMI EARS: Ext canals without abnormality NOSE: Nares patent bilateral OROPHARYNX: no oral lesions noted, posterior pharynx clear NECK: C-collar in place, no step-offs noted, no adenopathy LUNGS: Good inspiratory effort, rhonchi present, no tachypnea SpO2<97> CARDIOVASCULAR: Regular rate and rhythm without noted murmurs ABDOMEN: Soft, non-tender, non-distended with bowel sounds. MUSCULOSKELETAL: No tenderness, deformities, or effusions noted on gross inspection. EXTREMITIES: No cyanosis, clubbing or edema. SKIN: Inspection of the skin reveals no rashes NEUROLOGIC: Alert and oriented x 4. Strength and sensation to light touch were grossly intact x 4, no focal deficits noted Course Course Course Narrative: 56-year-old male with history and clinical presentation of recent fall and EMS reports episode of unresponsiveness, but patient noted to be responsive at this time. Patient only requesting to identify problem with his neck. Review of all investigations negative for acute finding such as fracture or subluxation. C-collar was removed and patient stable for discharge home. Spoke with the girlfriend, Vianey, who is at home in will open the door for EMS. MDM - Fall ECG Data Attestation: I personally reviewed and interpreted this ECG as follows: Prior ECG tracings: available for review Interpretation: Normal sinus rhythm, HR-87, no STEMI, TX/QRS/QTC are within normal limits. Discharge Plan Discharge Clinical Impression: Fall Patient Disposition: Home, Self-Care Instructions: Fall Prevention (ED) Additional Instructions: 1. Resume all home medications as prescribed. 2. Follow-up with your primary care provider in the next 2-3 days as indicated. Return to the ER for worsening symptoms. Prescriptions: No Action multivitamin Tablet 1 tab PO DAILY 0RF fluticasone propion-salmeterol [Wixela Inhub] 250-50 mcg/dose blister with device 1 puff PO BID 0RF ipratropium-albuterol 0.5 mg-3 mg(2.5 mg base)/3 mL solution for nebulization 1 vial inhalation QID 0RF levetiracetam 500 mg tablet 1 tab PO BID 0RF sulfamethoxazole-trimethoprim 800-160 mg tablet 1 tab PO DAILY 0RF pantoprazole 40 mg tablet,delayed release (DR/EC) 1 tab PO DAILY 0RF divalproex 125 mg capsule, delayed rel sprinkle 4 cap PO BID 0RF Eliquis 5 mg tablet 1 tab PO BID 0RF
[2022-02-09 22:43] VITALS: PULSE 89; RESP 16; O2SAT 97
--- NOTE | 2022-02-10 00:14 | PC.NURSE ---
c-collar taken off per Dr Rosen.
[2022-02-10 00:42] VITALS: BP 106/68; PULSE 82; RESP 18; O2SAT 98
== END 2022-02-10 01:18 | disposition home or self-care (01) ==
PROVIDERS: Emergency Provider Student in an Organized Health Care Education/Training Program
DX: M54.2 Cervicalgia (principal); Z91.81 History of falling; B20 Human immunodeficiency virus [HIV] disease; Z86.711 Personal history of pulmonary embolism; Z79.01 Long term (current) use of anticoagulants; Z66 Do not resuscitate
CPT/HCPCS: 70450; 71250; 72125; 93005; 99284